=== PATIENT | male | born 1935 | race Caucasian/White ===

== ENCOUNTER 2019-04-30 18:22 | Inpatient (IN) ==
--- NOTE | 2019-04-30 18:52 | PROVIDER DOCUMENTATION ---
HPI-Abdominal Pain/GI Problem - General Chief Complaint: Rectal Bleeding Stated Complaint: LOW BLOOD Time Seen by Provider: 04/30/19 18:51 Source: patient Allergies/Adverse Reactions: Patient Allergies Allergy/AdvReac Type Severity Reaction Status Date / Time No Known Allergies Allergy Verified 07/24/16 09:57 Home Medications: Home Medication List Medication Instructions Recorded Confirmed Last Taken Type Losartan [Cozaar] 100 mg PO DAILY 01/05/16 05/01/19 04/30/19 07:00 History ROSUVAstatin [Crestor] 10 mg PO HS 01/05/16 05/01/19 04/29/19 21:00 History Ropinirole [Requip] 2 mg PO QAM 01/05/16 05/01/19 05/01/19 10:00 History Tramadol [Ultram] 25 mg PO BID 01/05/16 05/01/19 04/30/19 07:00 History Warfarin [Coumadin] 5 mg PO ORDERED 01/05/16 05/01/19 04/30/19 07:00 History Amlodipine Besylate 10 mg PO DAILY 05/01/19 05/01/19 04/30/19 07:00 History Insulin Detemir [Levemir] 20 unit SQ QPM 05/01/19 05/01/19 04/30/19 20:00 History Insulin Detemir [Levemir] 50 unit SUBQ QAM 05/01/19 05/01/19 04/30/19 07:00 History Ropinirole HCl [Requip] 3 mg PO QHS 05/01/19 05/01/19 Unknown History Iron Carbonyl/Ascorbic Acid 1 tab PO BID #60 tab 05/03/19 Unknown Rx [Icar-C] Multivitamins/Minerals [Centrum 1 ea PO DAILY tab 05/03/19 Unknown Rx Silver] Pantoprazole [Protonix] 40 mg PO BID #60 tab 05/03/19 Unknown Rx - History of Present Illness-ABD Nature of Presenting Problems: 83 YO M pmh for prostate cancer presents sent to ED by PURIFICATION SUPERVISOR who he saw on today for low blood counts. PURIFICATION SUPERVISOR states hemoglobin was 7.3 today. Pt had been having episodes of light headedness and near syncope and his HTN meds had recently been decreased. He told the PURIFICATION SUPERVISOR today that he had been having dark stools. He has hx of Afib on coumadin and IDDM and prostate cancer. Onset/Duration: reports: 2 days ago Timing: reports: still present, intermittent Activities at Onset: reports: none Exposure to sick contacts?: No Modifying Factors: improves with: nothing Associated Symptoms: reports: other (near syncope, lightheadedness) Review of Systems - Adult - REVIEW OF SYSTEMS - ADULT Constitutional: denies: chills, fever Eyes: reports: no symptoms reported Ears, Nose, Mouth & Throat: reports: no symptoms reported Cardiovascular: denies: chest pain, palpitations Respiratory: denies: cough, shortness of breath Gastrointestinal: reports: constipation. denies: abdominal pain, nausea, poor appetite Genitourinary: denies: dysuria, flank pain, urinary retention Musculoskeletal: reports: no symptoms reported Integumentary: reports: no symptoms reported Neurological: reports: dizziness/vertigo Psychiatric: reports: no symptoms reported Endocrine: reports: no symptoms reported Past History - Adult - PAST MEDICAL HISTORY-ADULT Review of Records: reports: Old Records Reviewed, Medications Reviewed Major Childhood Illnesses: reports: denies history Cardiovascular: reports: A-Fib, HTN, hyperlipidemia Respiratory: reports: denies history Gastrointestinal: reports: denies history Obstetrical/Gynecological: reports: denies history Genitourinary: reports: cancer (prostate), other (enlarged prostate) Musculoskeletal: reports: denies history Neurological: reports: denies history Endocrine/Immune: reports: Diabetes Other Conditions: reports: denies history - PRIOR SURGERIES/PROCEDURES Surgical/Procedure History: reports: recent surgery (prostate biopsy p op day 4 01/05/16), hernia repair, orthopedic (extremity) (clavical fx) - IMMUNIZATION STATUS Childhood Immunizations: See Nurse Assessment Flu Vaccine: See Nurse Assessment - FAMILY HISTORY Family History: reviewed, not pertinent - SOCIAL HISTORY Smoking: denies Substance Use: denies Living Situation: family Physical Exam-General - PHYSICAL EXAM-ADULT Initial Vital Signs Reviewed: Yes - CONSTITUTIONAL General Appearance: appears well, alert, no apparent distress - EYES Eyes: PERRL/EOMI, pink conjunctivae - HEAD, EARS, NOSE, MOUTH & THROAT HENMT: moist mucous membranes - NECK Neck: supple - RESPIRATORY Respiratory: lungs clear, normal breath sounds, no pleuratic chest pain, no respiratory distress, no accessory muscle use - CARDIOVASCULAR Cardiovascular: regular rate, rhythm, no edema - GASTROINTESTINAL (ABDOMEN) Abdominal Exam: non tender, distended. negative: guarding, rigid, rebound - MUSCULOSKELETAL Back Exam: no CVA tenderness Extremity: normal range of motion, non-tender, normal gait, normal inspection - SKIN Integumentary: normal turgor, warm/dry - NEUROLOGIC Neurologic: grossly normal - PSYCHIATRIC Psych/Mental Status: normal mood/affect, oriented x 3 Progress - PLAN OF CARE/RESULTS Progress/Plan/Lab Results: Vital Signs - 8 hr 04/30/19 18:30 Temperature 98 F Pulse Rate 72 Respiratory Rate 18 Blood Pressure 124/57 O2 Sat by Pulse Oximetry 100 Orders Category Date Time Status CBC WITH DIFF [HEME] Stat Lab 04/30/19 18:45 Received CMP [COMPREHENSIVE METABOLIC PANEL] [CHEM] Stat Lab 04/30/19 18:45 Received PROTIME WITH INR [COAG] Stat Lab 04/30/19 18:45 Received PTT [COAG] Stat Lab 04/30/19 18:45 Received Result Diagrams: 05/03/19 07:15 05/03/19 07:15 - REASSESSMENT Reassessment #1 Time Reassessed: 18:51 Status: unchanged (Nurse practitioner called and states pt hemoglobin in office was 7.2) - CONSULTS/PCP/HOSPITALIST Notification #1 *Consult/PCP/Hospitalist*: Dr. Price Time Discussed: 21:45 Consult Disposition: Will see in ED, Admit Departure - Departure Date of Disposition Decision: 04/30/19 Time of Disposition Decision: 21:45 DIAGNOSIS: Acute blood loss anemia, GI bleed Disposition: HOME 01 Certified Medical Emergency: Emergent Condition: Stable - Critical Care Note This patient required my direct & personal management of CC.: No Attestation - Physician/ CARLA Attestation Patient care was provided by Advanced Practice Provider:: No The physician spent face to face time with patient:: Yes Advanced Practice Provider documentation review:: Supervising physician onsite and consulted in the evaluation and care of this patient. The physician did have a face to face encounter with the patient.
[2019-04-30 19:00] LABS: BASO# 0.04 X1000 (0.0-0.2); BASO% 0.8 % (0.0-0.8); EOS# 0.47 X1000 (0.0-0.7); EOS% 9.7 % (0.0-10.0); HEMATOCRIT 22.8 % (42.0-52.0); HEMOGLOBIN 7.3 g/dL (14.0-18.0); LYMPH# 0.98 X1000 (1.2-3.4); LYMPH% 20.2 % (20.5-51.1); MCH 26.5 PG (27-31); MCV 82.9 FL (81-99); MONO# 0.31 X1000 (0.11-0.59); MONO% 6.4 % (1.7-9.3); MPV 9.3 FL (7.4-10.4); NEUT# 3.06 X1000 (1.4-6.5); NEUT% 62.9 % (42.2-75.2); PLT 267 X1000 (130-400); RBC 2.75 XMIL (4.7-6.1); RDW 14.5 % (11.5-14.5); WBC 4.86 X1000 (4.8-10.8)
[2019-04-30 19:05] LABS: PTT 51.5 Seconds (22.3-41.8)
[2019-04-30 19:07] LABS: INR 4.26; PROTIME 42.4 Seconds (11.0-16.0)
[2019-04-30 19:14] LABS: ALB/GLOB RATIO 1.6; CALCIUM 8.4 mg/dL (8.8-10.2); CREATININE 2.6 mg/dL (0.7-1.2); POTASSIUM 4.1 mmol/L (3.5-5.1); TOTAL BILIRUBIN 0.3 mg/dL (0.20-1.00); TOTAL PROTEIN 6.5 g/dL (6.3-8.3)
[2019-04-30] MEDS ORDERED: SODIUM CHLORIDE 0.9% INJ ONE (21:17)
[2019-04-30] MEDS ORDERED: PROTONIX IV ONE (21:17)
--- NOTE | 2019-04-30 21:50 | Diag Imaging Result Doc PS360 ---
CHEST-2 VIEWS - 04/30/2019 INDICATION: CHF COMPARISON: 07/24/2016 FINDINGS: The lungs are normally expanded and clear. Heart size and mediastinal contours are normal. No pneumothorax or pleural effusion. IMPRESSION: Negative exam. Electronically signed by Geoffrey Read 04/30/2019 9:48 PM
[2019-05-01] MEDS ORDERED: NS 500 ML IV ONE (01:18)
[2019-05-01] MEDS ORDERED: NS 500 ML ONE (01:27)
[2019-05-01 03:08] LABS: URINE SOURCE CLEAN CATCH
[2019-05-01 03:11] LABS: BILIRUBIN URINE NEGATIVE (NEGATIVE); BLOOD URINE TRACE (NEGATIVE); COLOR STRAW; GLUCOSE URINE 70 mg/dL (NEGATIVE); KETONE URINE NEGATIVE (NEGATIVE); LEUKOCYTES URINE NEGATIVE (NEGATIVE); NITRITE URINE NEGATIVE (NEGATIVE); PH URINE 6.5; PROTEIN URINE NEGATIVE (NEGATIVE); SP GRAVITY URINE 1.011; TURBIDITY URINE CLEAR (CLEAR); UROBILINOGEN URINE NORMAL (NORMAL)
[2019-05-01 03:13] LABS: UR EPITHELIAL CELLS <10 /HPF (<10); URINE BACTERIA NEGATIVE /HPF; URINE RBC <10 /HPF (<10); URINE WBC <10 /HPF (<10)
[2019-05-01 05:36] LABS: PTT 43.3 Seconds (22.3-41.8)
[2019-05-01] MEDS ORDERED: TYLENOL PR PRN (05:39)
[2019-05-01] MEDS ORDERED: ZOFRAN IV PRN (05:39)
[2019-05-01 05:40] LABS: BASO# 0.04 X1000 (0.0-0.2); BASO% 0.8 % (0.0-0.8); EOS# 0.52 X1000 (0.0-0.7); EOS% 10.1 % (0.0-10.0); HEMATOCRIT 24.7 % (42.0-52.0); LYMPH# 0.91 X1000 (1.2-3.4); LYMPH% 17.7 % (20.5-51.1); MCH 27.4 PG (27-31); MCHC 32.4 g/dL (33-37); MCV 84.6 FL (81-99); MONO# 0.51 X1000 (0.11-0.59); MONO% 9.9 % (1.7-9.3); MPV 9.8 FL (7.4-10.4); NEUT# 3.16 X1000 (1.4-6.5); NEUT% 61.5 % (42.2-75.2); PLT 216 X1000 (130-400); RBC 2.92 XMIL (4.7-6.1); RDW 14.4 % (11.5-14.5); WBC 5.14 X1000 (4.8-10.8)
[2019-05-01 05:41] LABS: INR 2.36; PROTIME 26.4 Seconds (11.0-16.0)
[2019-05-01 05:55] LABS: ALB/GLOB RATIO 1.4; ALBUMIN 3.9 g/dL (3.5-5.0); CALCIUM 8.8 mg/dL (8.8-10.2); CREATININE 2.2 mg/dL (0.7-1.2); POTASSIUM 4.3 mmol/L (3.5-5.1); TOTAL BILIRUBIN 0.43 mg/dL (0.20-1.00); TOTAL PROTEIN 6.6 g/dL (6.3-8.3)
[2019-05-01] MEDS: NS 1,000 ML IV SCH ×2 (06:32→19:38)
[2019-05-01 07:06] LABS: IRON SATURATION 10 %; TIBC 367 ug/dL; TOTAL IRON 38 ug/dL (53-167); UNBOUND IRON 329 ug/dL (112-346)
--- NOTE | 2019-05-01 07:19 | EKG Report ---
Test Performed on : 05/01/2019 06:54:15 AM Test Reason : Hx of A-Fib Blood Pressure : / mmHG Vent. Rate : 067 BPM Atrial Rate : 067 BPM P-R Int : 182 ms QRS Dur : 096 ms QT Int : 424 ms P-R-T Axes : 057 -42 067 degrees QTc Int : 448 ms Normal sinus rhythm. Left axis deviation Abnormal ECG When compared with ECG of 24-JUL-2016 09:44, premature supraventricular complexes. are no longer present Confirmed by Ashok CHÁVEZ, Alli Tanner ([id number]) on 05/01/2019 6:15:20 PM
[2019-05-01 07:28] LABS: FERRITIN 22 ng/mL (30-400)
[2019-05-01 08:44] LABS: HEMATOCRIT 26.1 % (42.0-52.0); HEMOGLOBIN 8.5 g/dL (14.0-18.0)
[2019-05-01 08:49] LABS: INR 2.44; PROTIME 27.2 Seconds (11.0-16.0)
[2019-05-01] MEDS: PROTONIX IV SCH ×2 (10:18→21:23)
[2019-05-01] MEDS ORDERED: REQUIP PO ONE (11:02)
[2019-05-01 16:14] LABS: HEMATOCRIT 26.9 % (42.0-52.0); HEMOGLOBIN 8.7 g/dL (14.0-18.0)
--- NOTE | 2019-05-01 16:30 | GASTROENTEROLOGY CONSULTATION ---
DATE: 05/01/2019 REASON FOR CONSULT: GI bleed. HISTORY OF PRESENT ILLNESS: Mr. Aleman is an 83-year-old male with a history of atrial fibrillation on coumadin and aspirin, hypertension, diabetes and prostate cancer who presented with lightheadedness, fatigue, palpitations, and 1 week of melenic stools. He was seen by PCP who diagnosed with him anemia and was sent to ER. The patient has denies any nausea or vomiting. The patient also denied any chest pain, shortness of breath, fever, chills, or weight loss. On admission, patient's hemoglobin was 7.3 and 22.8. Today it is 8.5 and 26.1. The patient has so far received 1 unit of blood and 1 unit of fresh frozen plasma. No NSAID use. His last EGD/colonoscopy was 10-20 years ago. REVIEW OF SYSTEMS: As per HPI. Otherwise, 12 point review of system is negative other. PAST MEDICAL HISTORY: Atrial fibrillation, hypertension, insulin-dependent diabetes, stents placed. Prostate cancer F/u with [facility] in [place]. ALLERGIES: Patient has no known drug allergies. PAST SURGICAL HISTORY: Stent placed, abdominal hernia and 2 inguinal hernia on the left and right repaired. SOCIAL HISTORY: The patient is , has 3 kids. He used to smoke in the past and have alcohol in the past. Denies any illicit drug use. FAMILY HISTORY: His brother has cancer. HOME MEDICATIONS: Tramadol 25 mg p.o. twice a day. Crestor 10 mg p.o. at bedtime, Ropinirole 2 mg p.o. daily a.m., omeprazole 20 mg daily as needed, losartan 100 mg p.o. daily. Warfarin 5 mg p.o. as directed. Insulin and Levemir 20 units subQ at bedtime. Amlodipine 10 mg daily. Ropinirole 3 mg p.o. at bedtime, Levemir 50 units subQ in the morning. PHYSICAL EXAMINATION: Vital Signs: Temperature 97.8 degrees, pulse 73, respirations 18, blood pressure 110/66, oxygen saturation 97% on room air. The patient's weight is 174 pounds. BMI is 25.8 kg/m2. General: He is alert, oriented x3. Answering questions appropriately. Daughter at the bedside and in no acute distress. HEENT: Pale conjunctivae. No icterus. PERRL. Neck: Supple. Lungs: Clear to auscultation. Cardiovascular: Regular rate and rhythm. Abdomen: Soft, nontender, nondistended. Active bowel sounds heard in all 4 quadrants. Extremities: No clubbing, no cyanosis, no edema. Pedal pulses 2+ present bilaterally. Neurologic: He is alert and oriented x3. Nonfocal. Cranial nerves 2-12 grossly intact. LABORATORY DATA: WBCs are 5.14, RBCs 2.92, hemoglobin 8.5, hematocrit is 26.1, platelet count is 216,000. PTT is 27.2, INR is 2.44. Sodium is 137, potassium 4.3, chloride 104, carbon dioxide 22, anion gap 13, BUN 45, creatinine is 2.2, glucose 161, calcium 8.8, iron 238, TIBC 37, ferritin 222, total bilirubin 0.43, AST 18, ALT 12, alkaline phosphatase is 58, albumin is 3.9. Vitamin B12 is 640 and folate is 12.2. Urinalysis has shown glucose of 70, trace of blood. IMAGING: Chest x-ray has shown a negative exam. IMPRESSION AND PLAN: GI bleed Blood loss anemia Coagulopathy Atrial fibrillation Prostate cancer Diabetes type II Hypertension PLAN: Mr. Aleman is an 83-year-old male with the history of atrial fibrillation, hypertension, diabetes and prostate cancer.The patient is currently on Protonix 40 mg IV twice a day. He is receiving normal saline at 85 mL per hour. We plan to do an EGD tomorrow to find out the cause of his bleeding. We have discussed the risks, benefits, and alternatives of the procedure to the patient and family. They acknowledged understanding of the plan of care. Further plan of care will be based on the EGD findings. This plan was discussed with Dr. North. Thank you for your consult. Please call us for any further questions or concerns. Dictated by CUCA Hurst for Ramez North MD Physician Attestation I have seen and examined the patient. I have discussed and reviewed the note by Martha THURMAN and agree with findings and plan as documented. In brief, Mr. Aleman is a 83 year old man with HTN, IDDM2, and afib on aspirin and coumadin who presents with symptomatic anemia in the setting of melena and coagulopathy. He has responded to transfusion well and vital signs are stable. We will treat with PPI IV BID, give clears and plan for diagnostic EGD on Tue. Trend H/H daily, transfuse prn for goal hgb 7-8. Holding blood thinners. Goal INR <1.5. Will follow with you. MTDD
--- NOTE | 2019-05-01 16:43 | Diag Imaging Result Doc PS360 ---
EXAM: CT ABDOMEN/PELVIS W/O CONTRAST 05/01/2019 HISTORY: gi bleeding TECHNIQUE: This exam was performed using automated exposure control, adjustment of mA or kV according to patient size, and/or use of iterative reconstruction technique. COMMENT: There is a bleb in the left lower lobe. There are no previous abdominal studies available for comparison were possible comparison is made with the previous thoracic study of 05/24/2013. 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 This was also present at the time the previous study. There is a densely calcified stone in the distal gallbladder which was also present previously. There are granulomata in the liver and spleen. There is a partially calcified cyst in the lower pole of the left kidney, with a larger simple cyst in the lower pole the latter measuring over 7.5 cm. Both cysts were partially visible on the previous study including the calcifications in the smaller more superior cyst. There is some fullness of the left collecting system. There is no evidence of nephrolithiasis. There is stool present in the colon without evidence of dilatation. The small bowel is not distended. The appendix is normal in appearance. There is diverticulosis particularly in the sigmoid colon without evidence of active diverticulitis. There is no evidence of free fluid. The urinary bladder is not distended. There is no evidence of acute bony abnormality. IMPRESSION: Constipation and diverticulosis coli. Additional chronic findings as described above. Electronically signed by Mason Salmeron 05/01/2019 4:41 PM
[2019-05-01 21:14] LABS: HEMATOCRIT 26.3 % (42.0-52.0); HEMOGLOBIN 8.6 g/dL (14.0-18.0)
[2019-05-01] MEDS: SODIUM CHLORIDE 0.9% INJ SCH (21:23)
--- NOTE | 2019-05-02 00:52 | HISTORY AND PHYSICAL ---
PRIMARY CARE PROVIDER: Jarrod Gauthier MD. DATE AND TIME: 04/30/2019 at 2340. CHIEF COMPLAINT: Fatigue, melena and dizziness. HISTORY OF PRESENT ILLNESS: Mr. Aleman is an 83-year-old male with a past medical history most pertinent for atrial fibrillation on chronic Coumadin therapy, hypertension, hyperlipidemia, diabetes mellitus, and coronary artery disease status post angioplasty with stent placement x1. The patient reports that for approximately 1 to 2 weeks now he has been feeling more fatigued. He states that it does not take much to make him tired before he will have to sit down and rest. He also reported that he has been feeling dizzy and lightheaded, though this is mostly when he goes from a sitting to a standing position or lying down to a sitting position. Though, 1 to 2 days ago he did that he did notice that he was having melena. He reports he was having dark black stools. He has reported being dizzy and lightheaded, as previously mentioned, though he denies any headache. He denies any chest pain, shortness of breath, or cough. He also denies any abdominal pain at all. He denies any nausea, vomiting. He denies any dysuria or urinary frequency. He denies any pain, numbness, tingling or swelling in extremities. The patient was sent to the ER by his primary care physician. Upon evaluation in the ER he was noted to be anemic with a hemoglobin of 7.3, hematocrit 22.8. Also, his INR was elevated at 4.26. He does appear to have some underlying kidney disease though he did not report this. Looking all the way back to 2012, he does appear to have a baseline creatinine of anywhere from 1.7 to 2. Though, over the last 7 or 8 months, it does look like it has increased from 2 to currently 2.6 at this time. His GFR is 24. He denies having any other past medical history of gastrointestinal complications or gastrointestinal bleeding. Hemoccult stool was positive. Chest x-ray performed in the ER did show no acute abnormalities. The patient has been ordered to receive 1 unit of packed red blood cells as well as 1 unit of FFP. At this time, though his hemoglobin and hematocrit are low, I do feel like he is a little volume depleted. He is hemodynamically stable. He has not had any episodes with hypotension. His heart rate is within normal limits. Given this, I do feel like he is okay to go to the medical floor. REVIEW OF SYSTEMS: A 14-point review of systems was conducted with the patient and all were negative except for pertinent positives mentioned above in HPI. PAST MEDICAL HISTORY: 1. Atrial fibrillation, on chronic Coumadin therapy. 2. Hypertension. 3. Hyperlipidemia. 4. Diabetes mellitus type 2. 5. Restless legs syndrome. 6. History of skin cancer. 7. Coronary artery disease status post angioplasty with stent placement. 8. Prostate cancer status post biopsy. The patient states, at this time, that they were monitoring this. He has not required any intervention. He has not had any chemotherapy or radiation. PAST SURGICAL HISTORY: 1. Prostate biopsy. 2. History of bilateral inguinal hernia repairs as well as an umbilical hernia repair. SOCIAL HISTORY: The patient is a former smoker. He quit 25 years ago, though had smoked since age 11. He did previously smoke 2 packs per day. There is no known alcohol or illicit drug use. FAMILY HISTORY: Positive for his father having history of arthritis. Other than this, he does not have any known family past medical history. ALLERGIES: Patient has no known allergies. HOME MEDICATIONS: We are waiting for the patient's home medication list to be verified. He states that his daughter handles this for him and he does have his medication bottles at bedside, though did report that recently his blood pressure had been running lower than usual and they had adjusted and cut in half some of his blood pressure medications, though he is not able to tell me which ones or how they had been reduced. He also was not sure at this time how much Coumadin he was supposed to be taking either. We also would like to find out what medication he takes for his atrial fibrillation, if any at all. It looks as though he has been getting metoprolol pill, though I am not sure if he still taking this at this time. We have put a request in for the patient's medication list to be updated and verified with the daughter when she returns to the hospital in the morning. DIAGNOSTIC DATA/LABORATORY RESULTS: White blood cell count is 4.86, hemoglobin 7.3, hematocrit 22.8, platelet count is 267,000. PT 42.4, INR 4.26, PTT is 51.5. Sodium 135, potassium 4.1, chloride 101, serum bicarb 22, BUN 47, creatinine 2.6. A GFR of 24, glucose 203, calcium 8.4, magnesium 2.3. Liver function tests within normal limits. Urinalysis obtained via clean catch was positive for trace glucose and blood, though was negative for protein, ketones, nitrites, leukocytes, white blood cells, bacteria. PHYSICAL EXAMINATION: VITAL SIGNS: Temperature 98.4 degrees, heart rate 65, respirations 16, blood pressure is 114/59 with a MAP of 87, oxygen saturation is 98% on room air. GENERAL: Mr. Aleman is a pleasant, 83-year-old male who is resting in the ER stretcher. He was in no acute distress. He was awake, alert, and able to answer questions appropriately. HEENT: Head is atraumatic, normocephalic. Pupils are equal, round, reactive to light, were 3 mm bilaterally and brisk. Subconjunctivae were slightly pale. Oral mucosa was moist. NECK: Supple. Trachea midline. CARDIOVASCULAR: Patient has S1, S2 present. No murmurs, gallops, rubs appreciated with a regular rate and rhythm. PULMONARY: Patient has symmetrical chest expansion bilaterally. Lung sounds are clear to auscultation in bilateral frias. ABDOMEN: Soft, nontender. Does not appear to be distended, though the patient has a slightly protuberant abdomen noted. He did have an umbilical hernia present, though this was reducible. Bowel sounds are present in all 4 quadrants, were normoactive. EXTREMITIES: No cyanosis or edema noted. Pulse, motor, and sensory were intact in all extremities. Radial and pedal pulses were 2+ bilaterally. INTEGUMENTARY: The patient's skin color is pink, warm and dry. NEUROLOGICAL: Patient is alert and oriented to person, place, and time. He is able to move all extremities. There are no focal neurological deficits noted. ASSESSMENT AND PLAN: 1. Gastrointestinal bleed. Given that he is having melena, expect this to be possibly an upper GI bleed. He will be placed NPO at this time. He will be placed on Protonix IV 40 mg q.12 hours. We will provide IV hydration as well. We will do continuous cardiac telemetry and frequent vital signs. Though the patient's hemoglobin and hematocrit is low, he is hemodynamically stable at this time. His heart rate and blood pressure were within normal limits. We will go ahead and transfuse 1 unit of packed red blood cells as well as 1 unit of FFP given his INR. We will hold his Coumadin. We have placed a consult with Dr. Andersen with Gastroenterology. We will await their evaluation and further recommendations for management. 2. Symptomatic anemia. We will continue treatment as mentioned above for #1. We will transfuse and we will do serial hemoglobin and hematocrit draws to monitor his levels. 3. Supratherapeutic INR. The patient's INR is 4.26. We are holding his Coumadin. We are going to transfuse 1 unit of FFP. We will recheck an INR after that. It is possible that this may have been secondary to the patient does have an acute kidney injury with a creatinine of 2.6 at this time and GFR 24. 4. Acute kidney injury. Though the patient reports any history of chronic kidney disease, looking back, it does appear since 2012 he has had a baseline creatinine of 1.7 to 2. Though over the last 6 or 7 months, did notice a jump from 2 to around 2.5 to 2.7. We will avoid nephrotoxic medications, at this time. We will continue to monitor this closely as well as his intake and output. 5. Atrial fibrillation. The patient was on Coumadin for chronic anticoagulation, though given his gastrointestinal bleed, this is being held at this time. The patient is in normal sinus rhythm at this time, the rate is in the 60s. The patient is unable to confirm his home medication, at this time, though I do see where he is getting metoprolol filled, though we do need to confirm what he does take for heart rate control, if he takes anything at all. He will be placed on continuous cardiac telemetry. We will await for his medications be updated and verified. We will continue to follow. 6. History of coronary artery disease status post angioplasty with stent placement. 7. Diabetes mellitus type 2. His glucose was slightly elevated upon arrival. Though given that he is NPO, we may hold off on sliding scale insulin at this time. We will continue to monitor with pattern fingerstick blood sugars and implement this if needed. 8. Deep vein thrombosis prophylaxis. He will be provided with sequential compression devices. The patient has been placed on the medical floor with telemetry. He will have vital signs q.4 hours. We will do strict intake and output. We will repeat a CBC, INR, and a CMP in the morning. We have also placed orders for an anemia profile. Further orders and recommendations pending hospital course, diagnostic studies, and physician evaluation. Dictated by CUCA Bustos for Donavon Price MD cc: Donavon Price MD [facility]
[2019-05-02 03:04] LABS: HEMATOCRIT 26.8 % (42.0-52.0); HEMOGLOBIN 8.7 g/dL (14.0-18.0)
[2019-05-02 07:31] LABS: HEMATOCRIT 25.1 % (42.0-52.0); HEMOGLOBIN 8.1 g/dL (14.0-18.0); MCH 27.2 PG (27-31); MCHC 32.3 g/dL (33-37); MCV 84.2 FL (81-99); MPV 9.4 FL (7.4-10.4); RBC 2.98 XMIL (4.7-6.1); RDW 14.4 % (11.5-14.5); WBC 4.97 X1000 (4.8-10.8)
[2019-05-02 07:36] LABS: POTASSIUM 4.4 mmol/L (3.5-5.1)
[2019-05-02 07:37] LABS: ALBUMIN 3.8 g/dL (3.5-5.0); CALCIUM 8.6 mg/dL (8.8-10.2); PHOSPHORUS 1.9 mg/dL (2.7-4.5)
[2019-05-02] MEDS: SODIUM CHLORIDE 0.9% INJ SCH ×2 (08:55→20:43)
[2019-05-02] MEDS: PROTONIX IV SCH ×2 (08:55→20:43)
--- NOTE | 2019-05-02 09:33 | ENDOSCOPY OPERATIVE NOTE ---
[facility] ENDOSCOPY OPERATIVE NOTE , EGD PROCEDURE REPORT EXAM DATE: 05/02/2019 PATIENT NAME: Geovanni Aleman MR#: [id number] BIRTHDATE: 1935 ATTENDING: Ramez North MD STATUS: inpatient ACUTE CARE SURGEON: INDICATIONS: The patient is a 83 yr old male here for an EGD due to melena and anemia. Afib on couma din and aspirin. PROCEDURE PERFORMED: EGD, diagnostic MEDICATIONS: Per Anesthesia ESTIMATED BLOOD LOSS: None CONSENT: The patient understands the risks and benefits of the procedure and understands that these r isks include, but are not limited to: sedation, allergic reaction, infection, perforation and/or bleeding. Alternative means of evaluation and treatment include, among others: physical exam, x-rays, and/or surgical intervention. The patient elects to proceed with this endoscopic procedure. DESCRIPTION OF PROCEDURE: During pre-op preparation period all mechanical and medical equipment was c hecked for proper function. Hand hygiene and appropriate measures for infection prevention was taken. After the risks, benefits and alternatives of the procedure were thoroughly explained, Informed consent was verified, confirmed and timeout was successfully executed by the treatment team. The patient was anesthetized with topical anesthesia and the [id number] ([id number]) endoscope was introduced through the mouth and advanced to the second portion of the duoden um. Retroflexion was performed in the stomach and revealed no abnormalities. The gastroscope was then slowly withdraw n and removed. The patient's toleration of the procedure was excellent. ESOPHAGUS: A Schatzki ring was found at the gastroesophageal junction and was widely open. The z-li ne was noted at 39cm from the incisors. The z-line appeared normal. STOMACH: The stomach was normal. DUODENUM: The duodenum was normal. ADVERSE EVENTS: There were no complications. IMPRESSIONS: 1. Schatzki ring was found at the gastroesophageal junction 2. The z-line was noted at 39cm from the incisors 3. The stomach was normal 4. The duodenum was normal RECOMMENDATIONS: Clear liquid diet Prep with 4L golytely starting at 1800 NPO after MN Plan for diagnostic colonoscopy tomorrow REPEAT EXAM: Ramez North MD eSigned: Ramez North MD 05/02/2019 9:34 AM CC: CPT CODES: 89850 Upper gastrointestinal endoscopy including esophagus, stomach, and either the du odenum and/or jejunum as appropriate; diagnostic, with or without collection of specimen(s) by brushing or washing (separate procedure) ICD CODES: 578.1 Blood in stool 285.9 anemia,unspecified 530.3 Stricture and stenosis of esophagus The ICD and CPT codes recommended by this software are interpretations from the data that the [facility] staff has captured with the software. The verification of the translation of this report to the ICD and CPT co regis and modifiers is the sole responsibility of the health care institution and practicing physician where this report was generated. [employer] will not be held responsible for the validity of the ICD and CPT codes i ncluded on this report. [employer] assumes no liability for data contained or not contained herein. CPT is a registered tra demark of the [employer]. PATIENT NAME: Geovanni Aleman MR#: [id number]
[2019-05-02] MEDS: REQUIP PO SCH (10:58)
[2019-05-02] MEDS: ULTRAM PO SCH ×2 (10:59→22:42)
[2019-05-02] MEDS: NORVASC PO SCH (11:03)
--- NOTE | 2019-05-02 12:59 | PROGRESS NOTE ---
DATE: 05/02/2019 SUBJECTIVE: Patient reports feeling fine. No more episodes of black stools. The patient underwent endoscopy today. A Schatzki's ring was found. OBJECTIVE: Vital Signs: Temperature 99.2 degrees, heart rate 79, respiratory rate 18, blood pressure 120/88, O2 saturation 99% on room air. General Examination: This is an 83-year-old, male, lying in bed, in no acute distress. Cardiovascular Examination: S1 and S2 heard. No murmurs, gallops, or rubs. Regular rate and rhythm. Respiratory Examination: Clear bilaterally to auscultation. No work of breathing or using accessory muscles. Abdomen: Soft. Nontender to palpation. Nondistended. Bowel sounds present. No organomegaly. Extremities: No clubbing, cyanosis, or edema. Peripheral pulses present in both legs. Neurological Examination: The patient is alert and oriented x3. Moves 4 extremities. Hard of hearing. Laboratory Data: White cell count 4.97, hemoglobin 8.1, hematocrit 25.1. BMP that reveals creatinine 2.0, phosphorus 1.9. ASSESSMENT AND PLAN: 1. Gastrointestinal bleeding. The patient underwent esophagogastroduodenoscopy today. That was performed by Dr. North. They found a Schatzki's ring but the stomach and duodenum were normal. They plan to do a colonoscopy tomorrow. Hemoglobin has been stable since yesterday. We will continue to monitor. 2. Symptomatic anemia. Hemoglobin continues to be stable. He does not need to receive any blood transfusions. 3. Supratherapeutic INR. Of course, we have held the Coumadin. The INR from yesterday was 2.44. We will check INR today and we will continue to monitor while this patient is here. 4. Acute kidney injury. Actually, the creatinine continues to improve. Since 2013, creatinine at baseline looks to be between 1.7 to 2.0. At this point, we will continue to monitor BMP daily. 5. Atrial fibrillation. Heart rate is well controlled. We will continue holding anticoagulation. 6. History of coronary artery disease, status post angioplasty with stents. Aware. Patient is not complaining of any chest pain. 7. Diabetes mellitus type 2. We will continue to check Accu-Cheks before meals and also at bedtime, and sliding scale insulin as well. cc: Zach Kim MD
[2019-05-02] MEDS ORDERED: GOLYTELY PO ONE ×2 (14:00→18:00)
[2019-05-02] MEDS ORDERED: REQUIP PO SCH (21:00)
[2019-05-02] MEDS ORDERED: CRESTOR PO SCH (21:00)
[2019-05-03] MEDS ORDERED: FENTANYL ONE (07:38)
[2019-05-03] MEDS ORDERED: XYLOCAINE-MPF 2% ONE (07:38)
[2019-05-03] MEDS ORDERED: DIPRIVAN 1% ONE (07:38)
[2019-05-03 08:06] LABS: HEMATOCRIT 26.7 % (42.0-52.0); HEMOGLOBIN 8.7 g/dL (14.0-18.0); MCH 27.4 PG (27-31); MCHC 32.6 g/dL (33-37); MPV 9.7 FL (7.4-10.4); RBC 3.18 XMIL (4.7-6.1); RDW 14.2 % (11.5-14.5); WBC 4.86 X1000 (4.8-10.8)
[2019-05-03 08:19] LABS: ALBUMIN 4.1 g/dL (3.5-5.0); CALCIUM 8.7 mg/dL (8.8-10.2); CREATININE 1.9 mg/dL (0.7-1.2); PHOSPHORUS 1.8 mg/dL (2.7-4.5); POTASSIUM 3.6 mmol/L (3.5-5.1)
--- NOTE | 2019-05-03 09:11 | ENDOSCOPY OPERATIVE NOTE ---
[facility] ENDOSCOPY OPERATIVE NOTE , COLONOSCOPY PROCEDURE REPORT EXAM DATE: 05/03/2019 PATIENT NAME: Geovanni Aleman MR #: [id number] BIRTHDATE: 1935 ENDOSCOPIST: Samuel Andersen MD STATUS: inpatient MANAGER RESEARCH AND DEVELOPMENT: INDICATIONS: The patient is a 83 yr old male here for a colonoscopy due to Anemia, GI Bleed, melena, Negative EGD yesterday. PROCEDURE PERFORMED: Colonoscopy, diagnostic MEDICATIONS: Per Anesthesia PREP TYPE: GoLytely
[2019-05-03] MEDS: ULTRAM PO SCH (09:54)
[2019-05-03] MEDS: PROTONIX IV SCH (09:56)
[2019-05-03] MEDS: REQUIP PO SCH (09:56)
[2019-05-03] MEDS: NORVASC PO SCH (09:56)
[2019-05-03] MEDS: SODIUM CHLORIDE 0.9% INJ SCH (09:56)
[2019-05-03 11:50] VITALS: BP 148/60
[2019-05-03] MEDS ORDERED: ICAR-C PO SCH (21:00)
[2019-05-03] MEDS ORDERED: PERIDEX MT SCH (21:00)
[2019-05-04] MEDS ORDERED: CENTRUM SILVER PO SCH (09:00)
--- NOTE | 2019-05-05 12:48 | DISCHARGE SUMMARY ---
ADMISSION DATE: 04/30/2019 DISCHARGE DATE: 05/03/2019 DISCHARGE DIAGNOSIS: 1. GI bleeding, resolved. 2. Symptomatic anemia. 3. Acute on chronic kidney disease, stable. 4. Atrial fibrillation on anticoagulation. Coagulation has been held. 5. History of coronary artery disease. 6. Diabetes mellitus type 2. CONSULTATIONS: Ramez North MD, from GI. PROCEDURES: 1. Chest x-ray done on admission showed negative exam. 2. EGD showed Schatzki's ring found at the gastroesophageal junction. Stomach normal, duodenal normal. 3. Colonoscopy showed diverticulosis with grade 2 internal hemorrhoids. Normal terminal ileum and 1 polyp in the ascending colon, not resected. HOSPITAL COURSE: This is an 83-year-old male who presented to the emergency department complaining of a 1 to 2-week history of feeling more week. Apparently, he reported that 2 days before admission he had some melena, so for suspicion of GI bleeding patient was admitted to the hospital. Patient was evaluated by GI who performed the procedures as above. Patient received 1 unit of blood, plus 1 unit of FFP and, since admission, hemoglobin has been stable. The patient is eating okay. At this point patient, as we mentioned before, since admission did not have any more episodes of bleeding. Plan for him is to be discharged and have CBC checked at his primary care office and also follow up in 6 weeks with GI. DISCHARGE PHYSICAL EXAMINATION: Vital Signs: Temperature 97.8 degrees, heart rate 73, respiratory rate 17, blood pressure 127/49, O2 saturation 98% on room air. General Examination: This is an 83-year-old, male, lying in bed, in no acute distress. Cardiovascular: S1, S2 heard. No murmurs, gallops, or rubs. Regular rate and rhythm. Respiratory Exam: Clear bilaterally to auscultation. No work of breathing or using accessory muscles. Abdomen: Soft, nontender to palpation. Bowel sounds present. No organomegaly. Extremities: No clubbing cyanosis, or edema. Peripheral pulses present in both legs. Neurological: The patient is alert and oriented x3. Moves 4 extremities. DISCHARGE DISPOSITION: 1. Home to self-care. LIST OF MEDICATIONS: 1. Icar C 1 tablet p.o. b.i.d. 2. Protonix 40 mg 1 tablet p.o. twice daily for 30 days. 3. Multivitamins 1 tablet p.o. daily. 4. Tramadol 25 mg 1 tablet p.o. b.i.d. as needed for pain. 5. Rosuvastatin 10 mg 1 tablet p.o. at bedtime. 6. Ropinirole 2 mg p.o. in the morning. 7. Losartan 100 mg 1 tablet p.o. daily. 8. Warfarin as ordered. 9. Levemir 20 units at night. 10. Levemir 50 units in the morning. 11. Amlodipine 10 mg 1 tablet p.o. daily. Time discharging this patient: 35 minutes. cc: Zach Kim MD MTDD
== END 2019-05-03 13:03 | disposition home or self-care (01) | DRG 378 ==
LOC: ED 18:22 → SUATTDRO 05-01 01:16 → EDIPHOLD 05-01 01:16 → 4N 05-01 12:57
PROVIDERS: ATTEND Internal Medicine